=== PATIENT | male | born 1955 | race Caucasian/White ===

== ENCOUNTER → 2023-11-25 | Outpatient (CLI) | payer MEDICARE ==
--- NOTE | 2023-11-25 12:12 | US ---
EXAMINATION TYPE: US kidneys/renal and bladder DATE OF EXAM: 11/25/2023 COMPARISON: NONE CLINICAL INDICATION: Male, 67 years old with history of R82.89 ABNORMAL LAB RESULTS; EXAM MEASUREMENTS: Right Kidney: 11.2 x 6.2 x 5.7 cm Left Kidney: 11.7 x 6.3 x 4.8 cm Right Kidney: no hydronephrosis or masses seen Left Kidney: no hydronephrosis or masses seen Bladder: wnl Bilateral Jets seen: yes There is no evidence for hydronephrosis at this point in time. No nephrolithiasis is seen. No mago s are identified. The urinary bladder is anechoic. Bilateral ureteral jets are seen. IMPRESSION: No evidence for obstructive uropathy or renal calculus.
== END | disposition home or self-care (01) ==
LOC: RADUSWWP 10:10
PROVIDERS: ATTEND Family Medicine
DX: R82.89 Other abnormal findings on cytological and histological examination of urine (principal)
CPT/HCPCS: 76770

== ENCOUNTER → 2023-12-06 | Outpatient (CLI) | payer MEDICARE ==
[2023-12-06 11:33] LABS: African American GFR (CKD) 84 (>60 ml/min/1.73 sqM); Blood Urea Nitrogen 12 mg/dL (9-20); Non-African American GFR(CKD) 73 (>60 ml/min/1.73 sqM)
--- NOTE | 2023-12-06 13:13 | CT ---
EXAMINATION TYPE: CT abdomen pelvis wo/w con CT DLP: 2916.7 mGycm, Automated exposure control for dose reduction was used. DATE OF EXAM: 12/06/2023 12:56 PM COMPARISON: Ultrasound 11/25/2023. CLINICAL INDICATION: Male, 67 years old with history of R82.89 OTHER ABN FINDINGS ON CYTOLOG AND HIST OLOG; Abnormal findings on US TECHNIQUE: Axial CT abdomen pelvis wo/w con;Sagittal and coronal reformats were created on a [employer] workstation. Contrast used:100 mL of Isovue 300 without and with IV Contrast, (none if empty) Oral contrast used: with Oral Contrast (none if empty) FINDINGS: LOWER CHEST: Unremarkable ABDOMEN LIVER: Diffusely hypoattenuating parenchyma. GALLBLADDER AND BILE DUCTS: Unremarkable. PANCREAS: Unremarkable. SPLEEN: Unremarkable. ADRENAL GLANDS: Unremarkable. KIDNEYS AND URETERS: No evidence of hydronephrosis or renal calculus. The ureters are unremarkable. Bilateral simple appearing renal cysts. No solid renal neoplasms visualized. Peripelvic renal cysts o n the left. PELVIS BLADDER: Unremarkable REPRODUCTIVE: Prostate is enlarged in size measuring 5.7 cm in transverse dimension. ABDOMEN & PELVIS STOMACH AND BOWEL: No evidence of bowel obstruction. The appendix is visualized. Scattered colonic di verticula. PERITONEUM/RETROPERITONEUM: No evidence of pneumoperitoneum or free fluid. VASCULATURE: No evidence of aortic aneurysm. MUSCULOSKELETAL: No acute osseous abnormalities LYMPH NODES: No gross evidence for lymphadenopathy. SOFT TISSUE/ABDOMINAL WALL: Unremarkable IMPRESSION: 1. No evidence for obstructive uropathy or renal calculus. No renal masses identified. The ureters a re grossly unremarkable 2. Prostatomegaly correlate serum PSA. 3. Colonic diverticulosis. 4. Hepatic steatosis.
== END | disposition home or self-care (01) ==
LOC: RADCTMAIN 10:50
PROVIDERS: ATTEND Urology
DX: K76.0 Fatty (change of) liver, not elsewhere classified (principal); K57.30 Diverticulosis of large intestine without perforation or abscess without bleeding; N40.0 Benign prostatic hyperplasia without lower urinary tract symptoms; R82.89 Other abnormal findings on cytological and histological examination of urine
CPT/HCPCS: 82565; 84520; 74178; 36415; Q9967